=== PATIENT | female | born 1980 | race Native Hawaiian/Other Pacific Islander ===

== ENCOUNTER 2016-11-02 13:14 | Outpatient (CLI) | payer OTHER | END 2016-11-02 14:15 | disposition home or self-care (01) | LOC: RAD 13:14 | DX: M25.571 Pain in right ankle and joints of right foot (principal) ==

== ENCOUNTER 2019-01-13 10:16 | Emergency (ER) | payer OTHER ==
[~2019-01-13] VITALS: Ht 157.5 cm; Wt 63.5 kg
[2019-01-13 11:34] LABS: PLATELET COUNT 225 K/uL (152-353)
[2019-01-13 11:37] LABS: POTASSIUM 3.6 mmol/L (3.6-5.2)
[2019-01-13 13:15] VITALS: BP 125/48; TEMP 97.5
== END 2019-01-13 13:15 | disposition home or self-care (01) ==
LOC: ED 10:16
PROVIDERS: Emergency Medicine
DX: N20.1 Calculus of ureter (principal); N39.0 Urinary tract infection, site not specified
CPT/HCPCS: 36415; 80053; 81000; 81025; 85027; 96360; 96375; 99284; J1885

== ENCOUNTER 2022-06-18 17:56 | Emergency (ER) | payer OTHER ==
[~2022-06-18] VITALS: Ht 157.5 cm; Wt 65.8 kg
[2022-06-18 18:05] VITALS: BP 118/71; TEMP 98.4
== END 2022-06-18 19:50 | disposition home or self-care (01) ==
LOC: ED 17:56
PROC: 2W3SX1Z Immobilization of Right Foot using Splint (ICD-10-PCS; principal; 2022-06-18)
DX: S92.211A Displaced fracture of cuboid bone of right foot, initial encounter for closed fracture (principal); X58.XXXA Exposure to other specified factors, initial encounter
CPT/HCPCS: 99283